=== PATIENT | male | born 1935 | race Caucasian/White ===

== ENCOUNTER 2020-01-21 08:04 | Day surgery (SDC) | payer OTHER ==
[~2020-01-21] VITALS: Ht 172.7 cm; Wt 78.8 kg
[~2020-01-21 08:04] MED LIST: LOSA50 PO; ONE DAILY MUL400 MCG PO; Pravastatin Sod20 MG PO
--- NOTE | 2020-01-21 09:39 | NUR ---
Ambulatory in Day Surgery History, Chart, Medications and Allergies reviewed before start of procedure. Lungs clear T/O to Auscultation. Pre-Op teaching done. Pt verbalizes understanding.
--- NOTE | 2020-01-21 13:02 | NUR ---
Dressing to procedure site clean, dry, intact with no visible drainage, swelling, erythema or bruising noted. PROVIDED FLUIDS.
--- NOTE | 2020-01-21 13:42 | NUR ---
Discharge instructions reviewed with patient. Patient verbalizes understanding. Copy given to patient to take home. Dressing to procedure site clean, dry, intact with no visible drainage, swelling, erythema or bruising noted. Patient States Post-Procedure ride home has been arranged. Discharged via wheelchair to private car for ride home. PT BELONGINGS RETURNED TO PATIENT.
== END 2020-01-21 23:09 | disposition home or self-care (01) ==
LOC: ORSCMMR 08:04 → ORD 10:15 → ORSCMMR 10:15
PROVIDERS: Surgery
PROC: 0YU50JZ Supplement Right Inguinal Region with Synthetic Substitute, Open Approach (ICD-10-PCS; principal; 2020-01-21 10:15)
DX: K40.90 Unilateral inguinal hernia, without obstruction or gangrene, not specified as recurrent (principal); I10 Essential (primary) hypertension; Z87.891 Personal history of nicotine dependence; N18.9 Chronic kidney disease, unspecified; Z79.899 Other long term (current) drug therapy
CPT/HCPCS: A9270-GY; C1781; J0690; J3010; J7120

== ENCOUNTER 2022-03-14 19:04 | Emergency (ER) | payer OTHER ==
[~2022-03-14] VITALS: Ht 175.3 cm; Wt 77.1 kg
[2022-03-14 19:36] LABS: BASOPHILS ABSOLUTE AUTO 0.03 K/mm3 (0.00-0.23); BASOPHILS PERCENT AUTO 1 % (0-2); EOSINOPHILS ABSOLUTE AUTO 0.01 K/mm3 (0.00-0.68); EOSINOPHILS PERCENT AUTO 0 % (0-6); Hematocrit 40.7 % (37.0-53.0); Hemoglobin 13.7 g/dL (13.5-17.5); IMMATURE GRAN ABSOLUTE AUTO 0.02 K/mm3 (0.00-0.10); IMMATURE GRAN PERCENT AUTO 0 % (0-1); LYMPHOCYTES ABSOLUTE AUTO 0.85 K/mm3 (0.84-5.20); LYMPHOCYTES PERCENT AUTO 15 % (21-46); MONOCYTES PERCENT AUTO 19 % (4-13); Mean Corpuscular HGB 31.7 pg (26.0-34.0); Mean Corpuscular HGB Conc 33.7 g/dL (31.5-36.5); Mean Corpuscular Volume 94 fL (80-100); Mean Platelet Volume 9.7 fL (9.1-12.4); NEUTROPHILS ABSOLUTE AUTO 3.75 K/mm3 (1.96-9.15); NEUTROPHILS PERCENT AUTO 65 % (41-73); Platelet Count 121 K/mm3 (150-400); RDW Standard Deviation 49.1 fL (35.1-46.3); Red Blood Cell Count 4.32 M/mm3 (4.30-5.90); White Blood Cell Count 5.76 K/mm3 (4.00-11.30)
[2022-03-14 19:52] LABS: Albumin, Blood 3.1 g/dL (3.4-5.0); Albumin/Globulin Ratio 1.1 (0.8-1.8); Bun/Creatinine Ratio 20.3 (12.0-20.0); Calcium, Blood 8.2 mg/dL (8.5-10.1); Creatinine, Blood 1.28 mg/dL (0.60-1.20); Globulin, Blood 2.8 g/dL (2.2-4.0); Total Protein, Blood 5.9 g/dL (6.4-8.2)
[2022-03-14 20:42] LABS: Source, Urine Voided
[2022-03-14 20:46] LABS: Appearance, Urine Clear (Clear); Bilirubin, Urine Neg (Neg); Blood, Urine 4+ (Neg); Color, Urine Yellow (P-Yellow); Glucose Qualitative, Urine Neg (Neg); Ketones, Urine 1+ (Neg); Leukocyte Esterase, Urine Neg (Neg); Nitrite, Urine Neg (Neg); Protein, Urine 1+ (Neg); Urobilinogen, Urine 1+ (Normal)
[2022-03-14 20:57] LABS: Bacteria Few /hpf; Squamous Epithelial Cells Rare /hpf (Few); White Blood Cells, Urine 0-2 /hpf (0-5)
== END 2022-03-14 22:03 | disposition home or self-care (01) ==
LOC: ER 19:04
PROVIDERS: Emergency Medicine
DX: R53.1 Weakness (principal); Z79.899 Other long term (current) drug therapy; Z87.891 Personal history of nicotine dependence
CPT/HCPCS: 70450; 80053; 81001; 85025; 93005; 93010

== ENCOUNTER 2023-07-19 22:06 | Emergency (ER) | payer OTHER ==
[~2023-07-19] VITALS: Ht 175.3 cm; Wt 73.5 kg
[2023-07-19 22:58] LABS: BASOPHILS ABSOLUTE AUTO 0.05 K/mm3 (0.00-0.23); BASOPHILS PERCENT AUTO 0 % (0-2); EOSINOPHILS ABSOLUTE AUTO 0.01 K/mm3 (0.00-0.68); EOSINOPHILS PERCENT AUTO 0 % (0-6); Hematocrit 40.3 % (37.0-53.0); Hemoglobin 13.3 g/dL (13.5-17.5); IMMATURE GRAN PERCENT AUTO 1 % (0-1); LYMPHOCYTES ABSOLUTE AUTO 1.43 K/mm3 (0.84-5.20); LYMPHOCYTES PERCENT AUTO 8 % (21-46); MONOCYTES ABSOLUTE AUTO 1.52 K/mm3 (0.16-1.47); MONOCYTES PERCENT AUTO 9 % (4-13); Mean Corpuscular HGB 31.4 pg (26.0-34.0); Mean Corpuscular Volume 95 fL (80-100); Mean Platelet Volume 9.6 fL (9.1-12.4); NEUTROPHILS ABSOLUTE AUTO 14.84 K/mm3 (1.96-9.15); NEUTROPHILS PERCENT AUTO 83 % (41-73); Platelet Count 167 K/mm3 (150-400); RDW Coefficient Variation 14.1 % (11.7-14.2); RDW Standard Deviation 49.1 fL (35.1-46.3); Red Blood Cell Count 4.24 M/mm3 (4.30-5.90); White Blood Cell Count 17.95 K/mm3 (4.00-11.30)
[2023-07-19 23:19] LABS: Albumin, Blood 3.4 g/dL (3.4-5.0); Albumin/Globulin Ratio 1.3 (0.8-1.8); Bilirubin, Total 1.8 mg/dL (0.1-1.0); Bun/Creatinine Ratio 16.9 (12.0-20.0); Calcium, Blood 8.7 mg/dL (8.5-10.1); Creatinine, Blood 1.24 mg/dL (0.60-1.20); Globulin, Blood 2.7 g/dL (2.2-4.0); Potassium, Blood 4.3 mmol/L (3.5-5.5); Total Protein, Blood 6.1 g/dL (6.4-8.2)
[2023-07-19 23:29] LABS: Influenza A, PCR NEGATIVE (NEGATIVE); Influenza B, PCR NEGATIVE (NEGATIVE); Resp Syncytial Virus, PCR NEGATIVE (NEGATIVE); SARS-Cov-2 (COVID-19) PCR, MMC NEGATIVE (NEGATIVE)
[2023-07-20 03:33] LABS: Source, Urine Clean Catch
[2023-07-20 03:37] LABS: Bilirubin, Urine Neg (Neg); Blood, Urine 3+ (Neg); Glucose Qualitative, Urine Neg (Neg); Ketones, Urine Neg (Neg); Leukocyte Esterase, Urine 1+ (Neg); Nitrite, Urine Neg (Neg); Protein, Urine 1+ (Neg); Urobilinogen, Urine NORM (Normal)
[2023-07-20 03:43] LABS: Appearance, Urine Clear (Clear); Color, Urine Yellow (P-Yellow)
[2023-07-20 03:44] LABS: Bacteria Few /hpf; Squamous Epithelial Cells Rare /hpf (Few); White Blood Cells, Urine 0-2 /hpf (0-5)
[2023-07-20] MEDS ORDERED: XARELTO20 MG PO (04:53)
[2023-07-20 05:18] VITALS: BP 120/88
[2023-07-20 05:35] LABS: Thyroid Stimulating Hormone 0.51 uIU/mL (0.360-4.800)
== END 2023-07-20 05:48 | disposition home or self-care (01) ==
LOC: ER 22:06
PROVIDERS: Physician Assistant
DX: J90 Pleural effusion, not elsewhere classified (principal); Z87.891 Personal history of nicotine dependence; I48.91 Unspecified atrial fibrillation
CPT/HCPCS: 0241U; 71045; 80053; 81001; 83735; 84100; 84443; 85025; 87086; 93005; 93010; 99284-25

== ENCOUNTER → 2023-12-21 | Outpatient (CLI) | payer OTHER ==
[~2023-12-21] MED LIST changes: +XARELTO20 MG PO
[2023-12-21 13:05] LABS: BASOPHILS ABSOLUTE AUTO 0.06 K/mm3 (0.00-0.23); BASOPHILS PERCENT AUTO 1 % (0-2); EOSINOPHILS ABSOLUTE AUTO 0.18 K/mm3 (0.00-0.68); EOSINOPHILS PERCENT AUTO 3 % (0-6); Hematocrit 42.6 % (37.0-53.0); Hemoglobin 14.1 g/dL (13.5-17.5); IMMATURE GRAN ABSOLUTE AUTO 0.01 K/mm3 (0.00-0.10); IMMATURE GRAN PERCENT AUTO 0 % (0-1); LYMPHOCYTES ABSOLUTE AUTO 1.65 K/mm3 (0.84-5.20); LYMPHOCYTES PERCENT AUTO 23 % (21-46); MONOCYTES ABSOLUTE AUTO 0.76 K/mm3 (0.16-1.47); MONOCYTES PERCENT AUTO 10 % (4-13); Mean Corpuscular HGB 31.1 pg (26.0-34.0); Mean Corpuscular HGB Conc 33.1 g/dL (31.5-36.5); Mean Corpuscular Volume 94 fL (80-100); Mean Platelet Volume 9.1 fL (9.1-12.4); NEUTROPHILS ABSOLUTE AUTO 4.64 K/mm3 (1.96-9.15); NEUTROPHILS PERCENT AUTO 64 % (41-73); Platelet Count 181 K/mm3 (150-400); RDW Coefficient Variation 15.3 % (11.7-14.2); Red Blood Cell Count 4.54 M/mm3 (4.30-5.90)
[2023-12-21 13:32] LABS: Bun/Creatinine Ratio 15.1 (12.0-20.0); Calcium, Blood 8.9 mg/dL (8.5-10.1); Creatinine, Blood 1.19 mg/dL (0.60-1.20); Globulin, Blood 3.1 g/dL (2.2-4.0); Magnesium, Blood 2.1 mg/dL (1.6-2.4); Potassium, Blood 4.2 mmol/L (3.5-5.5); Thyroid Stimulating Hormone 1.402 uIU/mL (0.360-4.800); Total Protein, Blood 6.1 g/dL (6.4-8.2)
== END | disposition home or self-care (01) ==
LOC: LAB 13:02 → LAB SHORT 13:02
PROVIDERS: Chiropractor
DX: R53.83 Other fatigue (principal); R30.0 Dysuria
CPT/HCPCS: 80053; 83735; 83880; 84443; 84484; 85025; 87086

== ENCOUNTER 2024-02-02 18:38 | Emergency (ER) | payer OTHER ==
[~2024-02-02] VITALS: Ht 175.3 cm; Wt 71.7 kg
[2024-02-02 19:45] VITALS: BP 140/104
[2024-02-02] MEDS ORDERED: Acetaminophen 325 MG TABLET PO ONE (19:45)
== END 2024-02-02 21:57 | disposition home or self-care (01) ==
LOC: ER 18:38
DX: S09.90XA Unspecified injury of head, initial encounter (principal); I48.91 Unspecified atrial fibrillation; W01.0XXA Fall on same level from slipping, tripping and stumbling without subsequent striking against object, initial encounter; Z79.899 Other long term (current) drug therapy
CPT/HCPCS: 70450; 73562-RT; 99284-25; A9270

== ENCOUNTER 2024-02-05 14:34 | Inpatient (IN) | payer OTHER ==
[~2024-02-05] VITALS: Ht 175.3 cm; Wt 72.6 kg
[2024-02-05] MEDS ORDERED: Morphine Sulfate 4 MG/1 ML Injection IV ONE (17:10)
[2024-02-05] MEDS ORDERED: Ondansetron HCl 2 MG / ML 2ML Vial IV ONE (17:10)
[2024-02-05] MEDS ORDERED: Ondansetron HCl 2 MG / ML 2ML Vial IV PRN (17:30)
[2024-02-05] MEDS ORDERED: OxyCODONE 5 mg/Acetamin 325 mg TABLET PO PRN (17:30)
[2024-02-05 17:49] LABS: Hematocrit 42.2 % (37.0-53.0); Hemoglobin 14.1 g/dL (13.5-17.5); Mean Corpuscular HGB 31.1 pg (26.0-34.0); Mean Corpuscular HGB Conc 33.4 g/dL (31.5-36.5); Mean Corpuscular Volume 93 fL (80-100); Mean Platelet Volume 9.5 fL (9.1-12.4); Platelet Count 220 K/mm3 (150-400); RDW Coefficient Variation 14.3 % (11.7-14.2); RDW Standard Deviation 48.5 fL (35.1-46.3); Red Blood Cell Count 4.54 M/mm3 (4.30-5.90)
[2024-02-05 18:13] LABS: Bun/Creatinine Ratio 29.3 (12.0-20.0); Calcium, Blood 8.7 mg/dL (8.5-10.1); Creatinine, Blood 0.89 mg/dL (0.60-1.20); Potassium, Blood 4.2 mmol/L (3.5-5.5)
[2024-02-05 18:46] VITALS: BP 138/99
--- NOTE | 2024-02-05 19:32 | NUR ---
PT ADMITTED FROM ED FOR RIGHT HIP FX. SX OFFICE NOTIFIED OF CONSULT. PT ORIENTED TO ROOM, MEAL PROVIDED, URINAL IN REACH. CALL LIGHT IN REACH. REPORT GIVEN TO LAN PARKER
[2024-02-05] MEDS ORDERED: FURO20 PO (19:59)
[2024-02-05] MEDS ORDERED: FURO20 (19:59)
[2024-02-05] MEDS ORDERED: FLU VACC TS2024-25(6MOS UP)/PF 45 MCG/0.5 ML SYRINGE IM ONE (20:00)
[2024-02-05] MEDS ORDERED: POTA10T PO (20:00)
[2024-02-05 20:02] VITALS: BP 133/96
[2024-02-05] MEDS ORDERED: Sennosides 8.6 MG Tab PO SCH (21:00)
[2024-02-05] MEDS ORDERED: Losartan Potassium 50 MG Tab PO SCH (21:00)
[2024-02-05] MEDS ORDERED: NS 1,000 ML IV SCH (23:30)
[2024-02-06] VITALS (11 sets, daily range): BP systolic 100–138; BP diastolic 48–99
--- NOTE | 2024-02-06 06:25 | NUR ---
Shift Summary Pt is AOx1-3, sometimes forgetful about where he is and why he is here. Very [place] but easily able to reorient to place and situation. Bed alarm is on, pt can be impulsive and tried to get out of bed once thinking he was at home. He is on bedrest d/t to R hip fx. Pt denies any pain or nauesa, skipped OT doses of morphine and zofran. Once he fell asleep pt slept well t/o the night. He is on tele running AFIB from 77-96. No calls from telemetry rn. SCD's are on, NS infusing at 75.
[2024-02-06] MEDS ORDERED: CeFAZolin Sodium 2,000 MG in NS 100 ML IV SCH (07:10)
[2024-02-06] MEDS ORDERED: Tranexamic Acid 100 ML IV SCH (07:10)
[2024-02-06] MEDS ORDERED: Docusate Sodium 100 MG Cap PO SCH ×2 (09:00→21:00)
[2024-02-06] MEDS ORDERED: Pravastatin Sodium 20 MG Tab PO SCH (09:00)
[2024-02-06] MEDS ORDERED: Lactated Ringer's 1,000 ML IV SCH (11:20)
[2024-02-06] MEDS ORDERED: CeFAZolin Sodium 2,000 MG VIAL ONE (11:24)
[2024-02-06] MEDS ORDERED: propofoL 20 ML IV ONE (11:54)
[2024-02-06] MEDS ORDERED: Metoclopramide HCl 10 MG Tab PO PRN (13:40)
[2024-02-06] MEDS ORDERED: Ondansetron HCl 2 MG / ML 2ML Vial IV PRN (13:40)
[2024-02-06] MEDS ORDERED: NS KCl 20mEq 1,000 ML IV SCH (13:40)
[2024-02-06] MEDS ORDERED: Acetaminophen 325 MG TABLET PO PRN (13:40)
[2024-02-06] MEDS ORDERED: Ondansetron 4 MG TAB PO PRN (13:40)
[2024-02-06] MEDS ORDERED: Bisacodyl 10 MG Supp PR PRN (13:40)
[2024-02-06] MEDS ORDERED: Naloxone HCl 0.4MG / ML 1ML Vial IV PRN (13:45)
[2024-02-06] MEDS ORDERED: HYDROmorphone HCl/Pf 1MG SYR IV PRN (13:45)
[2024-02-06] MEDS ORDERED: Magnesium Hydroxide Conc 10 ML UDC PO PRN (13:45)
[2024-02-06] MEDS ORDERED: FLU VACC TS2024-25(6MOS UP)/PF 45 MCG/0.5 ML SYRINGE IM PRN (13:45)
[2024-02-06] MEDS ORDERED: TraMADol HCl 50 MG Tab PO PRN (13:50)
[2024-02-06] MEDS ORDERED: Ketorolac Tromethamine 15mg Vial IV PRN (14:30)
[2024-02-06] MEDS ORDERED: propofoL 50 ML IV ONE (15:10)
--- NOTE | 2024-02-06 15:43 | NUR ---
PT RESTING QUIETLY AT START OF SHIFT. ADMITTED FOR R HIP FX. PT NPO SINCE ADMISSION FOR SX. PT VERY ANGRY, REFUSING TO ALLOW ANY CARE DONE. PT REFUSED AM VS SEVERAL TIMES, THROWING FISTS AND HITTING RETIREMENT OFFICER IN THE FACE AND STOMACH. PT ALSO ATTEMPTED AND HIT THIS RN SEVERAL TIMES WHILE TRYING TO TALK WITH HIM AND EXPLAIN CARE. PT REFUSED ALL MEDICATIONS, INCLUDING PAIN MEDICATIONS. PT REFUSED TO ALLOW TELE MX TO BE PLACED WELL. PT BECOMING VERY VIOLENT WHEN NEEDING TO CHANGE ATTENDS FOR INCONTINENCE; 3P MAX TO TRY AND CHANGE ATTENDS WITH PT HITTING AND PINCHING THE WHOLE TIME. FAMILY TO RM AFTER A WHILE; PT ALSO ATTEMPTED TO HIT FAMILY. DR MCNALLY IN TO SEE PT EARLY AND ATTEMPTED TO EXPLAIN SX PROCEDURE. FAMILY CALLED BY DR MCNALLY AND LATER SIGNED CONSENT FOR SX. 1420 PT TAKEN DOWN TO OR, AFTER SX TEAM HERE TO DISCUSS WITH FAMILY PROCEDURE TO FOLLOW. ALL FAMILY IN AGREEMENT. PT TO TX TO SX FLOOR WHEN OUT OF RECOVERY.
--- NOTE | 2024-02-06 15:54 | NUR ---
02/06/24 1554 CE MAY PT HAD MULTIPLE OPEN SKIN TEARS PRIOR TO OR ARRIVAL ON BOTH ARMS TO HANDS. PROVIDER AWARE.
[2024-02-06] MEDS ORDERED: ePHEDrine Sulfate 50 MG/ML 1ML Injection ONE (16:12)
[2024-02-06] MEDS ORDERED: Ropivacaine 0.5% HCl/Pf 123.125 MG,EPINEPHrine HCL 0.25 MG,Ketorolac Tromethamine 15 MG... INFIL SCH (16:25)
[2024-02-06] MEDS ORDERED: Bupivacaine 0.5% HCl 5 MG/ML 30MLVIAL ONE (16:27)
[2024-02-06] MEDS ORDERED: Bupivacaine 0.5% Inj 50 ML Vial ONE (16:28)
[2024-02-06] MEDS ORDERED: Phenylephrine HCl 10mg/ml 1 ml Vial ONE (16:38)
--- NOTE | 2024-02-06 18:00 | NUR ---
ARRIVAL NOTE/SUMMARY PT INTO ROOM 215 FROM PACU, VSS. PT IS DROWSY AND IS NOT VERBALLY RESPONSIVE, BUT IS FOLLOWING COMMANDS TO DB&C AND OPENS EYES WHEN SPOKEN TO. BED ALARM ON FOR SAFETY. 2+ PITTING EDEMA PRESENT IN BLE, WRISTBAND IN PLACE ON L ANKLE AND IS NOT TIGHT AROUND LEG, WILL INFORM NOC RN. PT IS NOT COMPLAINING OF PAIN OR N/V. ARMS HELD UP TO CHEST, PUT PT DID REACH ARM OUT TO HOLD MY HAND. TXA GIVEN PER EMAR. UNABLE TO ASSESS LEVEL OF SENSATION S/P SPINAL, NO MOVEMENT NOTED IN BLE. TELE IN PLACE, PT CURRENTLY AFIB 90-100 PER VISHAL. FAMILY AT BEDSIDE. DRESSINGS TO L HIP C/D/I, PEDAL PULSE STRONG. SCDS IN PLACE. CALL LIGHT IN REACH.
[2024-02-07] MEDS ORDERED: CeFAZolin Sodium 2,000 MG in NS 100 ML IV SCH
[2024-02-07 05:56] VITALS: BP 125/95
[2024-02-07 06:47] LABS: Bun/Creatinine Ratio 38.3 (12.0-20.0); Calcium, Blood 8.4 mg/dL (8.5-10.1); Creatinine, Blood 0.81 mg/dL (0.60-1.20); Magnesium, Blood 1.8 mg/dL (1.6-2.4); Potassium, Blood 4.4 mmol/L (3.5-5.5)
[2024-02-07 07:11] VITALS: BP 135/93
[2024-02-07 07:12] VITALS: BP 105/81
[2024-02-07 07:49] LABS: BASOPHILS ABSOLUTE AUTO 0.02 K/mm3 (0.00-0.23); BASOPHILS PERCENT AUTO 0 % (0-2); EOSINOPHILS PERCENT AUTO 0 % (0-6); Hematocrit 38.7 % (37.0-53.0); Hemoglobin 12.9 g/dL (13.5-17.5); IMMATURE GRAN ABSOLUTE AUTO 0.04 K/mm3 (0.00-0.10); IMMATURE GRAN PERCENT AUTO 0 % (0-1); LYMPHOCYTES PERCENT AUTO 6 % (21-46); MONOCYTES ABSOLUTE AUTO 1.27 K/mm3 (0.16-1.47); MONOCYTES PERCENT AUTO 12 % (4-13); Mean Corpuscular HGB Conc 33.3 g/dL (31.5-36.5); Mean Corpuscular Volume 93 fL (80-100); NEUTROPHILS ABSOLUTE AUTO 8.76 K/mm3 (1.96-9.15); NEUTROPHILS PERCENT AUTO 82 % (41-73); Platelet Count 196 K/mm3 (150-400); RDW Coefficient Variation 14.1 % (11.7-14.2); RDW Standard Deviation 48.8 fL (35.1-46.3); Red Blood Cell Count 4.16 M/mm3 (4.30-5.90); White Blood Cell Count 10.69 K/mm3 (4.00-11.30)
--- NOTE | 2024-02-07 07:57 | NUR ---
SHIFT SUMMARY NOC. PT POD 1 FOR RIGHT HIP NAILING AFTER GLF. PT'S GAUZE WITH FOAM TAPE C/D/I. PT A/O X2-3, WITH NOTED FORGETFULNESS. PT DENIES PAIN. PT DID PULL IV AND REFUSED CARE AT CERTAIN TIMES OF SHIFT. THERAPEUTIC COMMUNICATION, REASSURANCE, AND CLEAR LOUD VOICE IMPROVED COMPLIANCE. ORDERS REQUESTED/RECEIVED FROM HOSPITALIST TO D/C TELEMETRY AND IV ACCESS. PT PULLED CORDS AND REFUSED TO PUT BACK ON. PT'S BED ALARM SET FOR SAFETY. CALL LIGHT IN REACH.
[2024-02-07] MEDS ORDERED: Enoxaparin 40 MG/0.4 ML SYR SC SCH (09:00)
[2024-02-07] MEDS ORDERED: Enoxaparin 30 MG/0.3 ML SYR SC SCH (09:00)
--- NOTE | 2024-02-07 11:17 | NUR ---
MORNING NOTE ASSUMED CARE AT APPROX 0715. PATIENT SLEEPING - EASILY AROUSABLE WITH VERBAL STIMULI. PATIENT ANSWERS ORIENTATION QUESTIONS APPROPRIATELY - SLOW TO RESPOND TO COMMANDS, TO ANSWER QUESTIONS AND COMMUNICATE NEEDS. SPEECH SOFT. IS ROSEB[place]. IS FORGETFUL - BED ALARM ON. VSS. ON ROOM AIR, SATs >90%. RR SHALLOW - ENCOURAGING DEEP BREATHING. BP SOFT, SBP 100s-110s. MAP >65. +3 PITTING EDEMA TO BLE. SCDs IN PLACE. POD 1 R HIP CARL - NEW AQUACEL DRESSING PLACED THIS MORNING. IS C/D/I. MANAGING PAIN PER EMAR. IS CURRENTLY WORKING WITH PHYSICAL AND OCCUPATIONAL THERAPY - STIFF WITH MOBILITY. MAX 2 PERSON ASSIST TO SIT ON SIDE OF BED. Q2H REPOSITIONING IN BED. IS INCONTINENT OF URINE - CHANGING ATTENDS PRN TO KEEP C/D/I. CALL LIGHT IN REACH. BED ALARM ON. DAUGHTER AT BEDSIDE.
--- NOTE | 2024-02-07 12:16 | NUR ---
SPEECH THERAPY EVAL PATIENT CONTINUING TO COUGH FOLLOWING PO INTAKE - INCLUDING WITH THICKENED LIQUIDS, PUDDING, AND APPLESAUCE. ASPIRATION PRECAUTIONS IN PLACE WITH PO INTAKE. MD FONTAINE CONTACTED - RECEIVED ORDER FOR SPEECH THERAPY EVAL.
[2024-02-07 15:40] VITALS: BP 120/80
--- NOTE | 2024-02-07 17:27 | NUR ---
SHIFT SUMMARY NO ACUTE CHANGES SINCE PREVIOUS DOCUMENTATION. VSS. PATIENT CONTINUES TO ANSWER ORIENTATION QUESTIONS APPROPRIATELY - SLOW TO RESPOND TO QUESTIONS AND WITH COMMUNICATING NEEDS. ABLE TO FOLLOW SOME COMMANDS. CAN BE FORGETFUL. MULTIPLE FAMILY MEMBERS PRESENT THROUGHOUT DAY. VSS. REMAINS ON ROOM AIR, SATs >90%. RR EVEN, UNLABORED. WORKED WITH PHYSICAL AND OCCUPATIONAL THERAPY TODAY - IS 2P MAX ASSIST TO SIT ON SIDE OF BED. STIFF WITH MOBILITY. Q2H REPOSITIONING. DRESSING TO R HIP REMAINS C/D/I. MEDICATING FOR PAIN PER EMAR PRN. SPEECH THERAPY EVAL COMPLETED TODAY - DIET SWITCHED TO PUREE WITH MILDLY THICKENED LIQUIDS. MEDS TO BE GIVEN CRUSHED IN APPLESAUCE. ASPIRATION PRECAUTIONS IN PLACE. CHANGING ATTENDS FREQUENTLY THROUGHOUT DAY FOR URINARY INCONTINENCE. CALL LIGHT IN REACH. BED ALARM ON. WILL CONTINUE TO MONITOR AND REPORT TO ONCOMING RN.
[2024-02-07 20:01] VITALS: BP 122/91
[2024-02-08 05:36] VITALS: BP 138/90
--- NOTE | 2024-02-08 06:32 | NUR ---
SHIFT SUMMARY NOC. PT POD 2 FOR RIGHT HIP NAILING POST GLF. PT'S AQUACEL HAS LIGHT SEROSANG DRAINAGE, OTHERWISE C/D/I. PT A/O X3, HOWEVER FORGETFUL AND CONFUSED AT TIMES. PT FIDGITING WITH BLANKETS AND CALL LIGHT FREQUENTLY. PT MEDICATED FOR PAIN X1 CRUSHED IN APPLESAUCE. MEPELEX PLACED ON BOTTOM FOR REDNESS. PT FEARFUL, STIFF, AND AGITATED. BED ALARM SET FOR SAFETY. CALL LIGHT IN REACH.
[2024-02-08 07:29] VITALS: BP 129/89
--- NOTE | 2024-02-08 10:35 | NUR ---
MORNING NOTE ASSUMED CARE AT APPROX 0715. PATIENT ALERT, INTERMITTENTLY PULLING AT GOWN, ATTENDS, DRESSING TO R HIP. ABLE TO REPORT HIS NAME/DATE OF , NAMES OF FAMILY MEMBERS - RECOGNIZES FAMILY AT BEDSIDE, THAT IT IS THE MONTH OF JANUARY, AND THAT HE IS IN THE HOSPITAL. REQUIRES FREQUENT REORIENTATION TO THE REASON FOR ADMISSION, PLAN OF CARE. SLOW TO RESPOND TO COMMANDS. VSS. Q2H REPOSITIONING ABLE. CHANGING ATTENDS PRN TO KEEP C/D/I. ABLE TO ADMINISTER PO MEDICATIONS CRUSHED IN APPLESAUCE. ASPIRATION PRECAUTIONS IN PLACE. CONTINUES TO COUGH FOLLOWING PO INTAKE. WEAK COUGH. ORAL CARE PERFORMED THIS MORNING. DRESSING TO R HIP CHANGED THIS MORNING SEROSANGUINOUS DRAINAGE GREATER THAN A HALF DOLLAR. CALL LIGHT IN REACH. BED ALARM ON. FAMILY AT BEDSIDE.
[2024-02-08 14:49] VITALS: BP 112/80
--- NOTE | 2024-02-08 17:35 | NUR ---
MET WITH PATIENT AND FAMILY DAUGHTER ISAIAS, SON DEBBIE, GRANDDAUGHTER SOCO. DISUSSED SHIRLEY CURRENT CONDITION. WE DISCUSSED HIS SWALLOW EVALUATION, PROVIDED BLUE BOOK "HARD CHOICES FOR LOVING PEOPLE". PATIENT HAS HAD A DRASTIC CHANGE IN MENTATION AND SINCE COMING TO THE HOSPITAL. PRIOR TO THIS ADMIT HE WAS CLEAR OF MIND, HE WAS EATING AND DRINKING WELL, HE WAS WALKING WITH A WALKER. HE DID REQUIRE ASSISTANCE WITH SHOWERING AND DRESSING. FAMILY REPORTED THAT PATIENT HAD DEMENTIA AND IS NOW IN A DETENTION CARE FACILITY. THEY REPORTED THAT PRIOR TO HER GOING TO THE FACILITY HIS APPETITE WAS POOR DUE TO STRESS AND LIMITED CONTACT WITH FAMILY. SINCE SHE HAS GONE INTO A DETENTION FACILITY PATIENT IS LIVING WITH DAUGHTER ISAIAS AND SHE REPORTS THAT HIS OVERALL HEALTH HAS IMPROVED. PATIENTS SON DEBBIE EXPRESSED CONCERN THAT SOMETHING HAS CHANGED AND IS WORRIED THAT MADSEN MAY NOT RETURN TO BASELINE. GRANDDAUGHTER ASKING IF PATIENT CONTINUES TO DECLINE IF WE COULD PRUSUE HOSPICE EOL TYPE CARE. I TOLD HER IF THAT HAPPENS THAT WE CAN DO THAT. DISCUSSED WITH DR. LAY PLANNING OF FOLLOWING FOR A FEW DAYS AND CLOSLY MONITORING MENTATION. FAMILY CONCERNED ABOUT CODE STATUS DISCUSSED OPTION AFTER CAREFUL REVIEW FAMILY ELECTED FOR DRN, AND LIMITED INTERVENTIONS. RELAYED INFORMATION TO BEDSIDE RN, AND PROVIDER, JAISON COMPLETED.
--- NOTE | 2024-02-08 17:43 | NUR ---
SHIFT SUMMARY NO ACUTE CHANGES SINCE PREVIOUS DOCUMENTATION. VSS. INCREASED CONFUSION THE DAY WENT ON - PULLING AT GOWN, MEPIPLEX DRESSINGS ON BUE. BECOMES INCREASINGLY AGITATED WITH INCREASED STIMULI, INTERVENTIONS OF CARE - AGITATION REDUCES WITH DECREASED STIMULI. FAMILY AT BEDSIDE ASSISTING WITH REDIRECTION, CARE. VSS. WORKED WITH PHYSICAL AND OCCUPATIONAL THERAPY TODAY - ABLE TO DANGLE ON SIDE OF BED WITH 2P MAX ASSIST. SPEECH THERAPY RE-EVALUATION TODAY - SWITCHED TO HONEY THICK LIQUIDS. NO STRAWS. MEDS CRUSHED IN APPLESAUCE. MOSTLY WEAK COUGH FOLLOWING PO INTAKE. PALLATIVE CARE CONSULT TODAY - POLST FORM COMPLETED AND CODE STATUS CHANGED TO DNR. WRISTBAND IN PLACE. Q2H REPOSITIONING. INCONTINENT OF URINE - CHANGING ATTENDS PRN TO KEEP C/D/I. SMALL SMEAR BM TODAY. BEDBATH COMPLETED. DRESSING TO R HIP WITH SCANT SEROSANGUINOUS DRAINAGE. CALL LIGHT IN REACH. BED ALARM ON. WILL CONTINUE TO MONITOR AND REPORT TO ONCOMING RN.
[2024-02-08 19:48] VITALS: BP 130/97
[2024-02-08] MEDS ORDERED: TraZODone HCl 50 MG Tab PO ONE (21:20)
--- NOTE | 2024-02-09 04:27 | NUR ---
SHIFT SUMMARY TENA WAS ALERT AND ORIENTED TO SELF AND FAMILY AT START OF SHIFT. PT WAS WITH FAMILY START OF SHIFT. PT WAS AGITATED INITALLY, BUT CALMED DOWN AND SLEPT WELL T/O SHIFT. PT DENIES PAIN WHEN ASKED. FLACC SCORE IS CLOSER TO A 4 WHEN AWAKE. PT WAS NOT WILLING TO OPEN MOUTH TO RECIEVE PO MEDS TONIGHT. NO ACUTE EVENTS TONIGHT. NO NOTED CHANGES TO PT CONDITION. PT DRESSIING TO R HIP C/D/I
[2024-02-09 04:52] VITALS: BP 133/81
[2024-02-09 06:48] LABS: BASOPHILS ABSOLUTE AUTO 0.02 K/mm3 (0.00-0.23); BASOPHILS PERCENT AUTO 0 % (0-2); EOSINOPHILS ABSOLUTE AUTO 0.02 K/mm3 (0.00-0.68); EOSINOPHILS PERCENT AUTO 0 % (0-6); Hematocrit 38.4 % (37.0-53.0); Hemoglobin 12.9 g/dL (13.5-17.5); IMMATURE GRAN ABSOLUTE AUTO 0.06 K/mm3 (0.00-0.10); IMMATURE GRAN PERCENT AUTO 1 % (0-1); LYMPHOCYTES ABSOLUTE AUTO 0.81 K/mm3 (0.84-5.20); LYMPHOCYTES PERCENT AUTO 6 % (21-46); MONOCYTES ABSOLUTE AUTO 1.13 K/mm3 (0.16-1.47); MONOCYTES PERCENT AUTO 9 % (4-13); Mean Corpuscular HGB 31.3 pg (26.0-34.0); Mean Corpuscular HGB Conc 33.6 g/dL (31.5-36.5); Mean Corpuscular Volume 93 fL (80-100); Mean Platelet Volume 9.3 fL (9.1-12.4); NEUTROPHILS ABSOLUTE AUTO 10.77 K/mm3 (1.96-9.15); NEUTROPHILS PERCENT AUTO 84 % (41-73); Platelet Count 212 K/mm3 (150-400); RDW Coefficient Variation 14.2 % (11.7-14.2); RDW Standard Deviation 48.6 fL (35.1-46.3); Red Blood Cell Count 4.12 M/mm3 (4.30-5.90); White Blood Cell Count 12.81 K/mm3 (4.00-11.30)
[2024-02-09 07:13] LABS: Bun/Creatinine Ratio 46.3 (12.0-20.0); Calcium, Blood 8.8 mg/dL (8.5-10.1); Creatinine, Blood 0.86 mg/dL (0.60-1.20); Potassium, Blood 4.2 mmol/L (3.5-5.5)
[2024-02-09 07:19] VITALS: BP 129/98
[2024-02-09] MEDS ORDERED: Furosemide 10 MG/ML 4ML Vial IV STA (13:05)
[2024-02-09] MEDS ORDERED: Acetaminophen 650 MG Supp PR SCH (14:00)
--- NOTE | 2024-02-09 14:14 | NUR ---
PATIENT WAS ASLEEP DURING MY ROUNDS. DAUGHER WAS AT BEDSIDE. REPORTED THAT SHE WAS DOING WELL, STILL CONCERNED THAT HER FATHER MAY NOT RECOVER. PROVIDED THERAPUTIC LISTENING. DISCUSSED CASE WITH BEDSIDE RN AND SPEECH THERAPY. HE IS CURRENTLY NPO.
[2024-02-09] MEDS ORDERED: Ipratropium/Albuterol SulF 2.5-0.5MG/3 ML Amp INH SCH (14:50)
[2024-02-09] MEDS ORDERED: Piperacillin/Tazobactam Sod 3.375 GM in NS 100 ML IV SCH (15:00)
--- NOTE | 2024-02-09 15:42 | NUR ---
MET WITH FAMILY. PATIENT HAS NO IV. PROVIDER DISCUSSE ANTIBIOTICS AND DIRURETICS. HE HAD AN ELEVATED WBC AND PNUMONIA. FAMILY WAS HESITANT TO PLACE AN IV. DISCUSSED OPTIONS WITH FAMILY THEY FEEL THEY ARE CAUSING MORE SUFFERING AT THIS POINT AND DONT THINK THAT HE WOULD WANT TO GO THROUGH THIS. WE DISCUSSED COMFORT MEASURES AND HOSPICE. EXPLINED THAT COMFORT CARE AND HOSPICE CARE FOCUSES ON END OF LIFE CARE, FOCUSING ON SYMPTOM MANAGMENT AND QUALITY RATHER THAN CURATIVE TREATMENTS. I EXPLAINED THAT WE WOULD NOT BE LOOKIG AT VITALS, OR DOING ANYTHING INVASIVE TO PROLONG LIFE. FAMILY IS AGREEABLE. UPDATED PROVIDER, AND ORDERS PLACED
[2024-02-09] MEDS ORDERED: LORazepam 1 MG Tab PO PRN (16:10)
[2024-02-09] MEDS ORDERED: Morphine Sulfate 20 MG/1ML 1 ML Oral Syringe SL PRN (16:10)
--- NOTE | 2024-02-09 19:27 | NUR ---
SHIFT SUMMARY POD 3 R POSTERIOR CARL HIP. PT TRANSITIONED TO COMFORT CARE THIS AFTERNOON. A&O x1-2, ORIENTED TO SELF AND INTERMITTENTLY FAMILY. PT UNABLE TO TOLERATE ORAL INTAKE TODAY R/T NOT FOLLOWING ASPIRATION PRECAUTIONS. PT SLEPT THROUGH THE MORNING. WHEN PT AWOKE IN THE AFTERNOON, PT BECAME INCREASINLY COMBATIVE. PT RESISTING CARE c PUNCHING ATTEMPTS AND VERBAL REFUSES. PT FREQUENTLY REMOVES ALL ATTACHMENTS TO BODY- SURGIAL SITE DRESSING, SKIN TEAR DRESSINGS, SCDs, ATTENDS, BLANKETS, ECT. AQUACEL CHANGED x2 TODAY c PURULENT DRAINAGE. R HIP NOW DRESSED WITH MEDIPORE DRESSING. ALL MEPILEXs CHANGED ON THE PT TODAY. PT OFTEN REOPENS SKIN TEARS WHILE PULLING ON HIS HANDS/ARMS. FAMILY @ BEDSIDE T/O THE DAY. PT TOLERATING COMFORT CARE MEDS PER EMAR. BED IN LOWEST POSITION, BED ALARM IN USE, REPORT GIVEN TO LAN PARKER.
--- NOTE | 2024-02-10 04:54 | NUR ---
SHIFT SUMMARY TENA WAS ALERT ON ASSESMENT AND AGITATED, ORIENTATION SEEMS TO HAVE DECLINED FROM PREVIOUS NIGHT, PT ONLY ORIENTED TO SELF. PT MEDICATED PER EMAR, AFTER INITIAL DOSE OF ROXINOL THIS SHIFT, PT WAS ABLE TO RELAX AND SCORES A 0-2 ON THE FLACC SCALE AT THIS TIME WHILE ASLEEP. PT REPOSITIONED FREQUENTLY. NO ACUTE EVENTS TONIGHT. PT SLEEPING W/ BED IN LOW POSITION AND BED ALARM IN PLACE.
[2024-02-10 05:16] LABS: BASOPHILS ABSOLUTE AUTO 0.02 K/mm3 (0.00-0.23); BASOPHILS PERCENT AUTO 0 % (0-2); EOSINOPHILS ABSOLUTE AUTO 0.04 K/mm3 (0.00-0.68); EOSINOPHILS PERCENT AUTO 0 % (0-6); Hematocrit 37.8 % (37.0-53.0); Hemoglobin 12.2 g/dL (13.5-17.5); IMMATURE GRAN ABSOLUTE AUTO 0.08 K/mm3 (0.00-0.10); IMMATURE GRAN PERCENT AUTO 1 % (0-1); LYMPHOCYTES ABSOLUTE AUTO 1.16 K/mm3 (0.84-5.20); LYMPHOCYTES PERCENT AUTO 9 % (21-46); MONOCYTES ABSOLUTE AUTO 1.01 K/mm3 (0.16-1.47); MONOCYTES PERCENT AUTO 8 % (4-13); Mean Corpuscular HGB 30.6 pg (26.0-34.0); Mean Corpuscular HGB Conc 32.3 g/dL (31.5-36.5); Mean Corpuscular Volume 95 fL (80-100); Mean Platelet Volume 9.4 fL (9.1-12.4); NEUTROPHILS ABSOLUTE AUTO 11.18 K/mm3 (1.96-9.15); NEUTROPHILS PERCENT AUTO 83 % (41-73); Platelet Count 204 K/mm3 (150-400); RDW Coefficient Variation 14.3 % (11.7-14.2); RDW Standard Deviation 49.6 fL (35.1-46.3); Red Blood Cell Count 3.99 M/mm3 (4.30-5.90); White Blood Cell Count 13.49 K/mm3 (4.00-11.30)
[2024-02-10 06:07] LABS: Albumin, Blood 2.1 g/dL (3.4-5.0); Anion Gap 10 mmol/L (3-11); Blood Urea Nitrogen 43 mg/dL (8-24); Bun/Creatinine Ratio 43.2 (12.0-20.0); CO2, Blood 26 mmol/L (21-32); Calcium, Blood 8.7 mg/dL (8.5-10.1); Chloride, Blood 115 mmol/L (98-108); Glomerular Filtration Rate 72 (60-); Glucose, Blood 94 mg/dL (70-99); Sodium, Blood 147 mmol/L (136-145)
--- NOTE | 2024-02-10 08:00 | NUR ---
PT NOT RESPONDING EXCEPT TO PAIN. RESP EASY, UNLABORED. ON R.A. ON COMFORT CARE. DOES NOT ANSWER QUESTIONS. CONTINUES TO BE RELAXED AND COMFORTABLE EVEN WITH CLEANING AND TURNING. BED IN LOW POSITION, CALL LITE IN REACH. FAMILY AT BEDSIDE.
--- NOTE | 2024-02-10 12:00 | NUR ---
PT RESTING RESP EASY, UNLABORED, FAMILY AT BEDSIDE. HAS NOT AWOKEN TODAY. HAS NOT BEEN TALKING. DID NOT RESPOND WHEN RECTAL TYLENOL ADMIN. TURNING Q2. NO FURTHER CONCERNS NOTED. DID DISCUSS ATROPINE DROPS WITH . SHE STATES WILL ORDER. BED IN LOW POSITION,C ALL LITE IN REACH, CLLS APPROP
[2024-02-10] MEDS ORDERED: Atropine Sulfate 1% Opth Soln 2ML BTL SL PRN (12:30)
[2024-02-10] MEDS ORDERED: Scopolamine Hydrobromide Patch TOP PRN (12:30)
--- NOTE | 2024-02-10 17:06 | NUR ---
1640 PT PASSED. NO RESP OR HEARTBEAT NOTED. VERIFIED TOD WITH TIP TESTER Olegario FAMILY IN ROOM. DR CALLED AND NOTIFIED. FAMILY STATES SISTER TO BRING IN INFO ON WHERE TO TRANSFER
--- NOTE | 2024-02-10 18:10 | NUR ---
"Spiritrual Care Callback | EOL Pt. had passed and family are at bedside when the welcome my visit. Facilitated a short life review as this pest control service representative had not previously seen the Pt. Considered matters of bairon and belief. Gave a blessing over the Pt. and family. Family verbalized gratitude for the spiritual care visit and verbalized that [facility] was chosen as their home of choice. Notified Charge and Nurse Occupational Health Nursing Director."
== END 2024-02-10 18:40 | DRG 521 ==
LOC: ER 14:34 → SURS 17:28 → MEDS 17:28 → SURS 02-06 16:07
PROVIDERS: Internal Medicine; Nurse Practitioner Acute Care; Orthopaedic Surgery; ADMIT Student in an Organized Health Care Education/Training Program
PROC: 3E03329 Introduction of Other Anti-infective into Peripheral Vein, Percutaneous Approach (ICD-10-PCS; 2024-02-06)
PROC: 0SRR0J9 Replacement of Right Hip Joint, Femoral Surface with Synthetic Substitute, Cemented, Open Approach (ICD-10-PCS; principal; 2024-02-06 12:30)
DX: S72.001A Fracture of unspecified part of neck of right femur, initial encounter for closed fracture (principal); G92.8 Other toxic encephalopathy; J69.0 Pneumonitis due to inhalation of food and vomit; I48.20 Chronic atrial fibrillation, unspecified; Z66 Do not resuscitate; Z51.5 Encounter for palliative care; I10 Essential (primary) hypertension; E78.5 Hyperlipidemia, unspecified; R29.6 Repeated falls; R13.10 Dysphagia, unspecified; H91.90 Unspecified hearing loss, unspecified ear; E87.70 Fluid overload, unspecified; M79.89 Other specified soft tissue disorders; F03.90 Unspecified dementia, unspecified severity, without behavioral disturbance, psychotic disturbance, mood disturbance, and anxiety; Z79.899 Other long term (current) drug therapy; Z98.890 Other specified postprocedural states; Z87.891 Personal history of nicotine dependence; Y92.009 Unspecified place in unspecified non-institutional (private) residence as the place of occurrence of the external cause; W18.39XA Other fall on same level, initial encounter; S09.90XA Unspecified injury of head, initial encounter; I48.91 Unspecified atrial fibrillation; W01.0XXA Fall on same level from slipping, tripping and stumbling without subsequent striking against object, initial encounter
CPT/HCPCS: 36415; 70450; 71045; 72170; 73552; 73562-RT; 80048; 80069; 83735; 83880; 84145; 85025; 85027; 92526; 92610; 93306; 94760; 94762; 97162; 97166; 97530; 99284-25; A9270; C1713; C1776; J0690; J1650; J2371; J2704; J3480; J7030